=== PATIENT | female | born 1995 | race Caucasian/White ===

== ENCOUNTER 2018-01-24 02:24 | Observation (INO) | payer OTHER ==
[~2018-01-24] VITALS: Ht 167.6 cm; Wt 62.8 kg
[2018-01-24] VITALS (10 sets, daily range): BP systolic 63–149; BP diastolic 21–78; PULSE 68–102; RESP 16–20; TEMP 97.7–98.4; O2SAT 96–100
[2018-01-24] MEDS ORDERED: SODIUM CHLOR 0.9% 1000 ML INJ 1,000 ML IV ONE ×2 (03:15→06:00)
[2018-01-24] MEDS ORDERED: SODIUM CHLORIDE 0.9% FLUSH 10 ML FLUSH IV FLUSH PRN ×2 (03:15→09:15)
[2018-01-24] MEDS ORDERED: ONDANSETRON HCL 4 MG/2 ML VIAL IV PUSH ONE (03:15)
[2018-01-24] MEDS ORDERED: MORPHINE SULFATE 4 MG/ML INJ IV PUSH ONE (03:15)
[2018-01-24 03:29] LABS: BILIRUBIN, URINE NEG (NEG); BLOOD, URINE NEG (NEG); GLUCOSE,URINE NEG (NEG); KETONE, URINE NEG (NEG); NITRITE,URINE NEG (NEG); URINE COLOR YELLOW (YELLW/STRAW); URINE LEUKOCYTE ESTERASE NEG (NEG)
[2018-01-24] MEDS ORDERED: metroNIDAZOLE 500 MG INJ 100 ML IV ONE (03:30)
[2018-01-24] MEDS ORDERED: cefTRIAXone INJ 1,000 MG in SODIUM CHLORIDE 0.9% INJ 100 ML IV ONE (03:30)
[2018-01-24 03:46] LABS: AUTOMATED NEUTROPHIL # 4.5 TH/MM3 (1.8-7.7); BASOPHIL # 0.2 TH/MM3 (0-0.2); BASOPHIL % 2.7 % (0.0-2.0); EOSINOPHIL % 0.5 % (0.0-4.0); HEMATOCRIT 39.9 % (35.0-46.0); HEMOGLOBIN 13.6 GM/DL (11.6-15.3); LYMPH % 37.3 % (9.0-44.0); MEAN CELL VOLUME 86.9 FL (80.0-100.0); MEAN CORPUSCULAR HEMOGLOBIN 29.5 PG (27.0-34.0); MEAN CORPUSCULAR HGB CONC 33.9 % (32.0-36.0); MEAN PLATELET VOLUME 8.1 FL (7.0-11.0); MONO % 5.3 % (0.0-8.0); MONOCYTE # 0.4 TH/MM3 (0-0.9); NEUT % 54.2 % (16.0-70.0); PLATELET COUNT 315 TH/MM3 (150-450); RED BLOOD COUNT 4.59 MIL/MM3 (4.00-5.30); RED CELL DISTRIBUTION WIDTH 11.6 % (11.6-17.2); WHITE BLOOD COUNT 8.1 TH/MM3 (4.0-11.0)
[2018-01-24 03:48] LABS: CHLORIDE 110 MEQ/L (98-107); SODIUM (NA) 143 MEQ/L (136-145)
[2018-01-24 03:51] LABS: CALCIUM 8.9 MG/DL (8.5-10.1)
[2018-01-24 03:52] LABS: ALBUMIN 4.9 GM/DL (3.4-5.0); BICARBONATE 25.4 MEQ/L (21.0-32.0); BLOOD UREA NITROGEN 9 MG/DL (7-18); GLUCOSE,RANDOM 116 MG/DL (74-106)
[2018-01-24 03:55] LABS: ALT (GPT) 21 U/L (10-53); AST (GOT) 14 U/L (15-37); CREATININE 0.96 MG/DL (0.50-1.00); GLOMERULAR FILTRATION RATE 71 ML/MIN (>89)
[2018-01-24 03:56] LABS: BACTERIA, URINE FEW /hpf; SQUAMOUS EPITHELIAL CELL URINE > 8 /hpf (0-5); TOTAL BILIRUBIN ADULT 0.2 MG/DL (0.2-1.0); TOTAL PROTEIN 8.7 GM/DL (6.4-8.2); WBC, URINE 0-2 /hpf (0-5)
[2018-01-24 03:58] LABS: ALKALINE PHOSPHATASE 75 U/L (45-117)
--- NOTE | 2018-01-24 04:37 | PD ---
HPI Chief Complaint: GI Complaint Time Seen by Provider: 03:08 Travel History International Travel<30 days: No Contact w/Intl Traveler<30days: No Traveled to known affect area: No History of Present Illness HPI 22-year-old female presents to the emergency department by private transportation for complaint of low abdominal pain and primarily right lower quadrant. No associated fever chills nausea vomiting anorexia dysuria frequency urgency flank pain or hematuria. Patient has noted vaginal discharge. Patient is sexually active. Patient denies contraceptive use. Patient states that she has regular menses her last period was in the middle of last month. Patient has not had menses at this time. Patient states her pain is not typical of her menstrual pain. Patient is 0 para 0. Patient has history of ovarian cysts. No vaginal bleeding. Patient no longer takes control pills for management of menstrual cycle or ovarian cyst. Patient denies history of endometriosis. Patient denies injury or trauma. The patient rates her pain as moderate to severe. Patient took Tylenol prior to arrival to the emergency department. [facility] Past Medical History Narrative Medical Ovarian cyst, repair of aortic coarctation; occasional alcohol use; nursing notes reviewed Diminished Hearing: No Tetanus Vaccination: > 5 Years Influenza Vaccination: No ?: Not LMP: 12/20/17 Past Surgical History Cardiac Surgery: Yes (coarchation of aorta ) Social History Alcohol Use: Yes (social) Tobacco Use: No Substance Use: No Allergies-Medications (Allergen,Severity, Reaction): Coded Allergies: No Known Allergies (Unverified , 01/24/18) Narrative Medication Tylenol Review of Systems Except as stated in HPI: all other systems reviewed are Neg Physical Exam Narrative GENERAL: Well-developed well-nourished female in obvious discomfort but no respiratory distress SKIN: Warm and dry. HEAD: Normocephalic. EYES: No scleral icterus. No injection or drainage. NECK: Supple, trachea midline. No JVD or lymphadenopathy. CARDIOVASCULAR: Regular rate and rhythm without murmurs, gallops, or rubs. RESPIRATORY: Breath sounds equal bilaterally. No accessory muscle use. GASTROINTESTINAL: Abdomen soft, bilateral lower quadrant and suprapubic tenderness right greater than left without guarding or rebound, nondistended. Pelvic exam: Normal external exam no redness induration or lesion; speculum exam white discharge no blood no clots no tissue loss is closed; bimanual exam right greater than left adnexal tenderness to palpation without palpable adnexal mass and no uterine enlargement positive cervical motion tenderness. MUSCULOSKELETAL: No cyanosis, or edema. BACK: Nontender without obvious deformity. No CVA tenderness. Data Data Last Documented VS Vital Signs Date Time Temp Pulse Resp B/P (MAP) Pulse Ox O2 Delivery O2 Flow Rate FiO2 01/24/18 05:54 93 16 103/47 (65) 107 16 94/52 (66) 110 18 63/21 (35) 01/24/18 05:43 100 Room Air 01/24/18 02:59 97.7 Orders Orders Beta Hcg (Quant/Titer) (01/24/18 03:08) Complete Blood Count With Diff (01/24/18 03:08) Comprehensive Metabolic Panel (01/24/18 03:08) Lipase (01/24/18 03:08) Urinalysis - C+S If Indicated (01/24/18 03:08) Iv Access Insert/Monitor (01/24/18 03:08) Ecg Monitoring (01/24/18 03:08) Oximetry (01/24/18 03:08) Sodium Chloride 0.9% Flush (Ns Flush) (01/24/18 03:15) Gc And Chlamydia Pcr (01/24/18 03:08) Wet Prep Profile (01/24/18 03:08) Sodium Chlor 0.9% 1000 Ml Inj (Ns 1000 M (01/24/18 03:15) Ondansetron Inj (Zofran Inj) (01/24/18 03:15) Morphine Inj (Morphine Inj) (01/24/18 03:15) Metronidazole 500 Mg Inj (Flagyl 500 Mg (01/24/18 03:30) Ceftriaxone Inj (Rocephin Inj) (01/24/18 03:30) Ct Abd/Pel W Iv Contrast(Rout) (01/24/18 ) Iohexol 350 Inj (Omnipaque 350 Inj) (01/24/18 04:44) Orthostatic Vital Signs (01/24/18 05:39) Type And Screen (01/24/18 05:54) Sodium Chlor 0.9% 1000 Ml Inj (Ns 1000 M (01/24/18 06:00) Hemoglobin (Hgb) (01/24/18 05:54) Labs Laboratory Tests Test 01/24/18 03:13 01/24/18 06:05 White Blood Count 8.1 TH/MM3 Red Blood Count 4.59 MIL/MM3 Hemoglobin 13.6 GM/DL 11.8 GM/DL Hematocrit 39.9 % Mean Corpuscular Volume 86.9 FL Mean Corpuscular Hemoglobin 29.5 PG Mean Corpuscular Hemoglobin Concent 33.9 % Red Cell Distribution Width 11.6 % Platelet Count 315 TH/MM3 Mean Platelet Volume 8.1 FL Neutrophils (%) (Auto) 54.2 % Lymphocytes (%) (Auto) 37.3 % Monocytes (%) (Auto) 5.3 % Eosinophils (%) (Auto) 0.5 % Basophils (%) (Auto) 2.7 % Neutrophils # (Auto) 4.5 TH/MM3 Lymphocytes # (Auto) 3.0 TH/MM3 Monocytes # (Auto) 0.4 TH/MM3 Eosinophils # (Auto) 0.0 TH/MM3 Basophils # (Auto) 0.2 TH/MM3 CBC Comment DIFF FINAL Differential Comment Urine Color YELLOW Urine Turbidity CLEAR Urine pH 5.0 Urine Specific [place] 1.015 Urine Protein NEG mg/dL Urine Glucose (UA) NEG mg/dL Urine Ketones NEG mg/dL Urine Occult Blood NEG Urine Nitrite NEG Urine Bilirubin NEG Urine Urobilinogen 0.2 MG/DL Urine Leukocyte Esterase NEG Urine WBC 0-2 /hpf Urine Squamous Epithelial Cells > 8 /hpf Urine Bacteria FEW /hpf Microscopic Urinalysis Comment CULT NOT INDICATED Clue Cells (Wet Prep) NONE SEEN Vaginal Trichomonas (Wet Prep) NONE SEEN Vaginal Yeast (Wet Prep) NONE SEEN Blood Urea Nitrogen 9 MG/DL Creatinine 0.96 MG/DL Random Glucose 116 MG/DL Total Protein 8.7 GM/DL Albumin 4.9 GM/DL Calcium Level 8.9 MG/DL Alkaline Phosphatase 75 U/L Aspartate Amino Transf (AST/SGOT) 14 U/L Alanine Aminotransferase (ALT/SGPT) 21 U/L Total Bilirubin 0.2 MG/DL Sodium Level 143 MEQ/L Potassium Level 3.5 MEQ/L Chloride Level 110 MEQ/L Carbon Dioxide Level 25.4 MEQ/L Anion Gap 8 MEQ/L Estimat Glomerular Filtration Rate 71 ML/MIN Lipase 125 U/L Human Chorionic Gonadotropin, Quant LESS THAN 1 MIU/ML MDM Medical Decision Making Medical Screen Exam Complete: Yes Emergency Medical Condition: Yes Medical Record Reviewed: Yes Interpretation(s) CBC & BMP Diagram 01/24/18 03:13 Total Protein 8.7 H, Albumin 4.9, Calcium Level 8.9, Alkaline Phosphatase 75, Aspartate Amino Transf (AST/SGOT) 14 L, Alanine Aminotransferase (ALT/SGPT) 21, Total Bilirubin 0.2 Vital Signs Date Time Temp Pulse Resp B/P (MAP) Pulse Ox O2 Delivery O2 Flow Rate FiO2 01/24/18 02:59 97.7 98 18 140/71 (94) 98 Quantitative hCG: Less than 1, negative CT abd/pel: FINDINGS: There is some increased attenuation fluid and left lower quadrant and pelvis close to a 2.4 cm left ovarian cyst. There is an additional 2.1 cm left ovarian cyst. Lung bases are clear. No acute findings in the liver, spleen, adrenals, left kidney or pancreas. There is a nonobstructing 3 mm calculus upper pole right kidney with small right renal cyst. Stomach is distended. No adenopathy. No bowel obstruction. CONCLUSION: 1. 2.4 and 2.1 cm left ovarian cysts with some high density fluid in the left lower quadrant and pelvis, possibly from a ruptured ovarian hemorrhagic cyst. Ameya Martini MD on January 24, 2018 at 5:07 Board Certified Radiologist. This report was verified electronically. @ 6:19 repeat HGB: 11.8 wet prep:negative UA: wnl Differential Diagnosis Abdominal pain, PID, ectopic , ruptured ovarian cyst, ovarian torsion, UTI, vasovagal near syncope; unlikely appendicitis Narrative Course IV access obtained specimens collected and sent for resulting Patient administered morphine 2 mg IV with pain relief Lab values grossly within normal range wet prep is negative CT abdomen and pelvis ordered Imaging study consistent with bilateral ovarian cyst 2.1 cm and 2.4 cm however free fluid is noted in the pelvis consistent with probable hemorrhage; orthostatic measurements performed and patient is symptomatic with near syncope supine blood pressure 103/47 with a heart rate of 93 upon standing blood pressure is 63/21 with a heart rate of 110 in view of patient was symptomatic orthostatic hypotension with free fluid in the pelvis case discussed with on- call OB ED physician, Dr Lorenzana, with recommendation to speak to on-call GENERAL MANAGER, Dr Salazar, recommendation to transfer from [facility] emergency department to [facility] emergency department case was discussed with Dr. Mahmood as accepting [facility] ED MD. At 6:40 AM paramedics at bedside transport patient for evaluation of ruptured hemorrhagic cyst with free fluid in pelvis by CT abdomen and pelvis patient with repeat hemoglobin of 11.8 from 13.6. Patient to be evaluated for possible procedural intervention has received 1 L of normal saline and is ready receiving additional bolus of normal saline suspect possibly marked drop in blood pressure may reflect a component of vasovagal near syncope although heart rate did not decrease with drop in blood pressure. Patient is stable for transport. Physician Communication Physician Communication discussed with OB ED Dr Lorenzana --call placed to GENERAL MANAGER --Dr Salazar rec ED-ED for eval ; Dr Lorenzana aware Diagnosis Primary Impression: Hemorrhagic ovarian cyst Linda Osorio MD January 24, 2018 04:37
[2018-01-24] MEDS ORDERED: IOHEXOL 350 MG/ML 10 ML VIAL (for RAD DIAG) IVCONTRAST ONE (04:44)
--- NOTE | 2018-01-24 05:14 | RADRPT ---
EXAM DATE/TIME: 01/24/2018 04:34 [place] COMPARISON: No previous studies available for comparison. INDICATIONS : Lower abdominal pain. IV CONTRAST: 85 cc Omnipaque 350 (iohexol) IV ORAL CONTRAST: No oral contrast ingested. RADIATION DOSE: 5.96 CTDIvol (mGy) MEDICAL HISTORY : Cardiovascular disease. SURGICAL HISTORY : Cardiac surgery. ENCOUNTER: Initial ACUITY: 1 day PAIN SCALE: 7/10 LOCATION: Bilateral lower quadrant TECHNIQUE: Volumetric scanning of the abdomen and pelvis was performed. Using automated exposure control and ad justment of the mA and/or kV according to patient size, radiation dose was kept as low as reasonably achievable to obtain optimal diagnostic quality images. DICOM format image data is available electro nically for review and comparison. FINDINGS: There is some increased attenuation fluid and left lower quadrant and pelvis close to a 2.4 cm left o varian cyst. There is an additional 2.1 cm left ovarian cyst. Lung bases are clear. No acute findings in the liver, spleen, adrenals, left kidney or pancreas. Ther e is a nonobstructing 3 mm calculus upper pole right kidney with small right renal cyst. Stomach is d istended. No adenopathy. No bowel obstruction. CONCLUSION: 1. 2.4 and 2.1 cm left ovarian cysts with some high density fluid in the left lower quadrant and pelv is, possibly from a ruptured ovarian hemorrhagic cyst. Ameya Martini MD on January 24, 2018 at 5:07 Board Certified Radiologist. This report was verified electronically.
--- NOTE | 2018-01-24 06:16 | HHI.PR ---
CLINICAL DOCUMENTATION IMPROVEMENT SPECIALIST Note Note Received call from warp knit operator and spoke to Dr. Osorio about this patient, was informed about her presenting sympntoms of BL lower abd pain and CT findings of 2cm ovarian cysts, some high density fluid in the pelvis that could be blood from ruptured ovarian cyst, a starting Hb of 13.6 a 3 hour repeat that is pending, neg UPT, and + orthostatics, clinically well appearing while laying supine but symptomatic when standings. I believed that It is rare to have a ruptured ovarian cyst cause significant anemia, i asked the patient be transferred to [facility] ED and informed Dr Lorenzana of the [facility] CLINICAL DOCUMENTATION IMPROVEMENT SPECIALIST hospitalist service of her situation, he agreed to evaluate her upon arrival and if felt to be a surgical candidate then will call me back. After the above phone calls i was able to further review her chart and repeat Hb returned at 11.8 after 1 L of IV fluid, this further confirms my suspicion that she the patient may have had a ruptured ovarian cyst that is causing her pain but is not anemic, however I cannot explain the positive orthostatics but pain control and repeat the vitals and possible trending her Hb, ordered a pelvic US to better characterize and quantify the pelvic flud may be appropriate. Aamir Salazar MD January 24, 2018 06:16
--- NOTE | 2018-01-24 08:36 | PD ---
Data Data Last Documented VS Vital Signs Date Time Temp Pulse Resp B/P (MAP) Pulse Ox O2 Delivery O2 Flow Rate FiO2 01/24/18 07:26 98.4 91 17 135/75 (95) 99 Room Air Orders Orders Beta Hcg (Quant/Titer) (01/24/18 03:08) Complete Blood Count With Diff (01/24/18 03:08) Comprehensive Metabolic Panel (01/24/18 03:08) Lipase (01/24/18 03:08) Urinalysis - C+S If Indicated (01/24/18 03:08) Iv Access Insert/Monitor (01/24/18 03:08) Ecg Monitoring (01/24/18 03:08) Oximetry (01/24/18 03:08) Sodium Chloride 0.9% Flush (Ns Flush) (01/24/18 03:15) Gc And Chlamydia Pcr (01/24/18 03:08) Wet Prep Profile (01/24/18 03:08) Sodium Chlor 0.9% 1000 Ml Inj (Ns 1000 M (01/24/18 03:15) Ondansetron Inj (Zofran Inj) (01/24/18 03:15) Morphine Inj (Morphine Inj) (01/24/18 03:15) Metronidazole 500 Mg Inj (Flagyl 500 Mg (01/24/18 03:30) Ceftriaxone Inj (Rocephin Inj) (01/24/18 03:30) Ct Abd/Pel W Iv Contrast(Rout) (01/24/18 ) Iohexol 350 Inj (Omnipaque 350 Inj) (01/24/18 04:44) Orthostatic Vital Signs (01/24/18 05:39) Type And Screen (01/24/18 05:54) Sodium Chlor 0.9% 1000 Ml Inj (Ns 1000 M (01/24/18 06:00) Hemoglobin (Hgb) (01/24/18 05:54) Consult Gynecology (01/24/18 ) Admit Order (Ed Use Only) (01/24/18 ) Labs Laboratory Tests Test 01/24/18 03:13 01/24/18 06:05 White Blood Count 8.1 TH/MM3 Red Blood Count 4.59 MIL/MM3 Hemoglobin 13.6 GM/DL 11.8 GM/DL Hematocrit 39.9 % Mean Corpuscular Volume 86.9 FL Mean Corpuscular Hemoglobin 29.5 PG Mean Corpuscular Hemoglobin Concent 33.9 % Red Cell Distribution Width 11.6 % Platelet Count 315 TH/MM3 Mean Platelet Volume 8.1 FL Neutrophils (%) (Auto) 54.2 % Lymphocytes (%) (Auto) 37.3 % Monocytes (%) (Auto) 5.3 % Eosinophils (%) (Auto) 0.5 % Basophils (%) (Auto) 2.7 % Neutrophils # (Auto) 4.5 TH/MM3 Lymphocytes # (Auto) 3.0 TH/MM3 Monocytes # (Auto) 0.4 TH/MM3 Eosinophils # (Auto) 0.0 TH/MM3 Basophils # (Auto) 0.2 TH/MM3 CBC Comment DIFF FINAL Differential Comment Urine Color YELLOW Urine Turbidity CLEAR Urine pH 5.0 Urine Specific [place] 1.015 Urine Protein NEG mg/dL Urine Glucose (UA) NEG mg/dL Urine Ketones NEG mg/dL Urine Occult Blood NEG Urine Nitrite NEG Urine Bilirubin NEG Urine Urobilinogen 0.2 MG/DL Urine Leukocyte Esterase NEG Urine WBC 0-2 /hpf Urine Squamous Epithelial Cells > 8 /hpf Urine Bacteria FEW /hpf Microscopic Urinalysis Comment CULT NOT INDICATED Clue Cells (Wet Prep) NONE SEEN Vaginal Trichomonas (Wet Prep) NONE SEEN Vaginal Yeast (Wet Prep) NONE SEEN Blood Urea Nitrogen 9 MG/DL Creatinine 0.96 MG/DL Random Glucose 116 MG/DL Total Protein 8.7 GM/DL Albumin 4.9 GM/DL Calcium Level 8.9 MG/DL Alkaline Phosphatase 75 U/L Aspartate Amino Transf (AST/SGOT) 14 U/L Alanine Aminotransferase (ALT/SGPT) 21 U/L Total Bilirubin 0.2 MG/DL Sodium Level 143 MEQ/L Potassium Level 3.5 MEQ/L Chloride Level 110 MEQ/L Carbon Dioxide Level 25.4 MEQ/L Anion Gap 8 MEQ/L Estimat Glomerular Filtration Rate 71 ML/MIN Lipase 125 U/L Human Chorionic Gonadotropin, Quant LESS THAN 1 MIU/ML MDM Supervised Visit with FRANK: No Narrative Course Patient CARE was assume from Dr. Linda Osorio after transfer from [place] to [facility], this is a patient with a ruptured hemorrhagic ovarian cyst with some hemoperitoneum, she had significant orthostatic hypotension after fluid resuscitation her hemoglobin had dropped nearly 2 g. She was sent over for [facility] [employer]ER consultation, she has been seen by Dr. Lorenzana would like to place her in observation status to trend her hemoglobins but at least for the moment will be managed nonoperatively. However Dr. Lorenzana did say that the patient may need laparoscopy if her hemoglobin continues to drop. He is also ordered a pelvic ultrasound. On my assessment the patient is minimally tender suprapubically but certainly is not rigid or an acute abdomen, there is no rebound or percussive tenderness. Her blood pressure is in the high 130 systolic and she is showing any signs of shock. Diagnosis Primary Impression: Hemorrhagic ovarian cyst Admitting Information Admitting Physician Requests: Observation Condition: Stable Florentin Isidro MD January 24, 2018 08:36
--- NOTE | 2018-01-24 09:12 | HHI.HP ---
History & Physical H&P Patient Name: Raimundo Mott Unit Number: [id number] Date of : 1995 Patient Status: Admitted Inpatient (obs) Attending Doctor: Aamir Salazar MD HPI HPI Chief Complaint: GI Complaint Time Seen by Provider: 03:08 Travel History International Travel<30 days: No Contact w/Intl Traveler<30days: No Traveled to known affect area: No History of Present Illness HPI 22-year-old female G0 presents to the emergency department by private transportation for complaint of low abdominal pain and primarily right lower quadrant. LMP-2 wks ago [are regular],. No associated fever chills nausea vomiting anorexia dysuria frequency urgency flank pain or hematuria. Patient has noted vaginal discharge. Patient is sexually active. Patient denies contraceptive use. Patient states that she has regular menses her last period was in the middle of last month. Patient has not had menses at this time. Patient states her pain is not typical of her menstrual pain. Patient is 0 para 0. Patient has history of ovarian cysts. No vaginal bleeding. Patient no longer takes control pills for management of menstrual cycle or ovarian cyst. Patient denies history of endometriosis. Patient denies injury or trauma. The patient rates her pain as moderate to severe. Patient took Tylenol prior to arrival to the emergency department. History PFSH Past Medical History Narrative Medical Ovarian cyst, repair of aortic coarctation; occasional alcohol use; nursing notes reviewed Diminished Hearing: No Tetanus Vaccination: > 5 Years Influenza Vaccination: No ?: Not LMP: 12/20/17 Past Surgical History Cardiac Surgery: Yes (coarchation of aorta ) Social History Alcohol Use: Yes (social) Tobacco Use: No Substance Use: No Allergies-Medications Allergies-Medications (Allergen,Severity, Reaction): Coded Allergies: No Known Allergies (Unverified , 01/24/18) Narrative Medication Tylenol ROS Review of Systems Except as stated in HPI: all other systems reviewed are Neg Physical Exam Physical Exam Narrative GENERAL: Well-developed well-nourished female in obvious discomfort but no respiratory distress SKIN: Warm and dry. HEAD: Normocephalic. EYES: No scleral icterus. No injection or drainage. NECK: Supple, trachea midline. No JVD or lymphadenopathy. CARDIOVASCULAR: Regular rate and rhythm without murmurs, gallops, or rubs. RESPIRATORY: Breath sounds equal bilaterally. No accessory muscle use. GASTROINTESTINAL: Abdomen soft, bilateral lower quadrant and suprapubic tenderness right greater than left without guarding or rebound, nondistended. Pelvic exam: Normal external exam no redness induration or lesion; speculum exam white discharge no blood no clots no tissue loss is closed; bimanual exam right greater than left adnexal tenderness to palpation without palpable adnexal mass and no uterine enlargement positive cervical motion tenderness. MUSCULOSKELETAL: No cyanosis, or edema. BACK: Nontender without obvious deformity. No CVA tenderness. GENITOURINARY - nl ext genitalia and vagina discharge described is white and clumpy appears physiologic noninfectious 3+ CMT , uterus 2+ tender .adnexal fullness noted with 2 + tenderness no rebound no distinct mass Data Data Data Last Documented VS Vital Signs Date Time Temp Pulse Resp B/P (MAP) Pulse Ox O2 Delivery O2 Flow Rate FiO2 01/24/18 05:54 93 16 103/47 (65) 107 16 94/52 (66) 110 18 63/21 (35) 01/24/18 05:43 100 Room Air 01/24/18 02:59 97.7 Orders Orders Beta Hcg (Quant/Titer) (01/24/18 03:08) Complete Blood Count With Diff (01/24/18 03:08) Comprehensive Metabolic Panel (01/24/18 03:08) Lipase (01/24/18 03:08) Urinalysis - C+S If Indicated (01/24/18 03:08) Iv Access Insert/Monitor (01/24/18 03:08) Ecg Monitoring (01/24/18 03:08) Oximetry (01/24/18 03:08) Sodium Chloride 0.9% Flush (Ns Flush) (01/24/18 03:15) Gc And Chlamydia Pcr (01/24/18 03:08) Wet Prep Profile (01/24/18 03:08) Sodium Chlor 0.9% 1000 Ml Inj (Ns 1000 M (01/24/18 03:15) Ondansetron Inj (Zofran Inj) (01/24/18 03:15) Morphine Inj (Morphine Inj) (01/24/18 03:15) Metronidazole 500 Mg Inj (Flagyl 500 Mg (01/24/18 03:30) Ceftriaxone Inj (Rocephin Inj) (01/24/18 03:30) Ct Abd/Pel W Iv Contrast(Rout) (01/24/18 ) Iohexol 350 Inj (Omnipaque 350 Inj) (01/24/18 04:44) Orthostatic Vital Signs (01/24/18 05:39) Type And Screen (01/24/18 05:54) Sodium Chlor 0.9% 1000 Ml Inj (Ns 1000 M (01/24/18 06:00) Hemoglobin (Hgb) (01/24/18 05:54) Labs Laboratory Tests Test 01/24/18 03:13 01/24/18 06:05 White Blood Count 8.1 TH/MM3 Red Blood Count 4.59 MIL/MM3 Hemoglobin 13.6 GM/DL 11.8 GM/DL Hematocrit 39.9 % Mean Corpuscular Volume 86.9 FL Mean Corpuscular Hemoglobin 29.5 PG Mean Corpuscular Hemoglobin Concent 33.9 % Red Cell Distribution Width 11.6 % Platelet Count 315 TH/MM3 Mean Platelet Volume 8.1 FL Neutrophils (%) (Auto) 54.2 % Lymphocytes (%) (Auto) 37.3 % Monocytes (%) (Auto) 5.3 % Eosinophils (%) (Auto) 0.5 % Basophils (%) (Auto) 2.7 % Neutrophils # (Auto) 4.5 TH/MM3 Lymphocytes # (Auto) 3.0 TH/MM3 Monocytes # (Auto) 0.4 TH/MM3 Eosinophils # (Auto) 0.0 TH/MM3 Basophils # (Auto) 0.2 TH/MM3 CBC Comment DIFF FINAL Differential Comment Urine Color YELLOW Urine Turbidity CLEAR Urine pH 5.0 Urine Specific [place] 1.015 Urine Protein NEG mg/dL Urine Glucose (UA) NEG mg/dL Urine Ketones NEG mg/dL Urine Occult Blood NEG Urine Nitrite NEG Urine Bilirubin NEG Urine Urobilinogen 0.2 MG/DL Urine Leukocyte Esterase NEG Urine WBC 0-2 /hpf Urine Squamous Epithelial Cells > 8 /hpf Urine Bacteria FEW /hpf Microscopic Urinalysis Comment CULT NOT INDICATED Clue Cells (Wet Prep) NONE SEEN Vaginal Trichomonas (Wet Prep) NONE SEEN Vaginal Yeast (Wet Prep) NONE SEEN Blood Urea Nitrogen 9 MG/DL Creatinine 0.96 MG/DL Random Glucose 116 MG/DL Total Protein 8.7 GM/DL Albumin 4.9 GM/DL Calcium Level 8.9 MG/DL Alkaline Phosphatase 75 U/L Aspartate Amino Transf (AST/SGOT) 14 U/L Alanine Aminotransferase (ALT/SGPT) 21 U/L Total Bilirubin 0.2 MG/DL Sodium Level 143 MEQ/L Potassium Level 3.5 MEQ/L Chloride Level 110 MEQ/L Carbon Dioxide Level 25.4 MEQ/L Anion Gap 8 MEQ/L Estimat Glomerular Filtration Rate 71 ML/MIN Lipase 125 U/L Human Chorionic Gonadotropin, Quant LESS THAN 1 MIU/ML Exceptions Exceptions [facility] Medical Decision Making Medical Screen Exam Complete: Yes Emergency Medical Condition: Yes Medical Record Reviewed: Yes Interpretation(s) CBC & BMP Diagram 01/24/18 03:13 Total Protein 8.7 H, Albumin 4.9, Calcium Level 8.9, Alkaline Phosphatase 75, Aspartate Amino Transf (AST/SGOT) 14 L, Alanine Aminotransferase (ALT/SGPT) 21, Total Bilirubin 0.2 Vital Signs Date Time Temp Pulse Resp B/P (MAP) Pulse Ox O2 Delivery O2 Flow Rate FiO2 01/24/18 02:59 97.7 98 18 140/71 (94) 98 Quantitative hCG: Less than 1, negative CT abd/pel: FINDINGS: There is some increased attenuation fluid and left lower quadrant and pelvis close to a 2.4 cm left ovarian cyst. There is an additional 2.1 cm left ovarian cyst. Lung bases are clear. No acute findings in the liver, spleen, adrenals, left kidney or pancreas. There is a nonobstructing 3 mm calculus upper pole right kidney with small right renal cyst. Stomach is distended. No adenopathy. No bowel obstruction. CONCLUSION: 1. 2.4 and 2.1 cm left ovarian cysts with some high density fluid in the left lower quadrant and pelvis, possibly from a ruptured ovarian hemorrhagic cyst. hemoperitoneum likely maybe self limiting and if so would not need surgery , if Hgb decreases any more or if pain worsens peritoneal signs increase then recommend scope and indicated procedures Ameya Martini MD on January 24, 2018 at 5:07 Board Certified Radiologist. This report was verified electronically. @ 6:19 repeat HGB: 11.8 wet prep:negative UA: wnl Differential Diagnosis Abdominal pain, PID, ectopic , ruptured ovarian cyst, ovarian torsion, UTI, vasovagal near syncope; unlikely appendicitis Narrative Course IV access obtained specimens collected and sent for resulting Patient administered morphine 2 mg IV with pain relief Lab values grossly within normal range wet prep is negative CT abdomen and pelvis ordered Imaging study consistent with bilateral ovarian cyst 2.1 cm and 2.4 cm however free fluid is noted in the pelvis consistent with probable hemorrhage; orthostatic measurements performed and patient is symptomatic with near syncope supine blood pressure 103/47 with a heart rate of 93 upon standing blood pressure is 63/21 with a heart rate of 110 in view of patient was symptomatic orthostatic hypotension with free fluid in the pelvis case discussed with on- call OB ED physician, Dr Lorenzana, with recommendation to speak to on-call BUSINESS SERVICES MANAGER, Dr Salazar, recommendation to transfer from [facility] emergency department to [facility] emergency department case was discussed with Dr. Mahmood as accepting [facility] ED MD. At 6:40 AM paramedics at bedside transport patient for evaluation of ruptured hemorrhagic cyst with free fluid in pelvis by CT abdomen and pelvis patient with repeat hemoglobin of 11.8 from 13.6. Patient to be evaluated for possible procedural intervention has received 1 L of normal saline and is ready receiving additional bolus of normal saline suspect possibly marked drop in blood pressure may reflect a component of vasovagal near syncope although heart rate did not decrease with drop in blood pressure. Patient is stable for transport. Physician Communication Physician Communication --call placed to BUSINESS SERVICES MANAGER --Dr Salazar rec ED-ED for eval; Diagnosis Primary Impression: Hemorrhagic ovarian cyst January 24, 2018 [id number] Perez Lorenzana II, MD January 24, 2018 09:12
[2018-01-24] MEDS ORDERED: KETOROLAC TROMETHAMINE 30 MG/ML (IVP) VIAL IV PUSH PRN (09:15)
[2018-01-24] MEDS ORDERED: MORPHINE SULFATE 4 MG/ML INJ IV PUSH PRN (09:15)
--- NOTE | 2018-01-24 10:42 | RADRPT ---
EXAM DATE/TIME: 01/24/2018 09:32 [place] COMPARISON: No previous studies available for comparison. INDICATIONS : Pelvic pain. MEDICAL HISTORY : Pelvic pain. SURGICAL HISTORY : Coarctation of aorta. ENCOUNTER: Initial ACUITY: 3 days PAIN SCORE: 8/10 LOCATION: Bilateral pelvis MEASUREMENTS: UTERUS: 7.2 x 4.7 x 3.7 cm ENDOMETRIAL STRIPE: 8 mm RIGHT OVARY: 3.7 x 3.2 x 1.9 cm LEFT OVARY: 6.2 x 3.8 x 2.5 cm FINDINGS: UTERUS: The myometrium has homogeneous echotexture without mass. Homogeneous echotexture to the endometrium. No endometrial fluid. RIGHT OVARY: Ovary contains no mass or significant cystic lesion. Multiple follicular cysts. LEFT OVARY: There is a dominant cyst and the left ovary measuring 2.5 x 2.5 cm containing scattered internal spec ular echoes. There are also multiple small follicular cysts. There is intact flow to the ovary by c olor Doppler. MISCELLANEOUS: Moderate amount of free fluid in the cul-de-sac and bilateral adnexa CONCLUSION: 1. Moderate amount of free fluid in the cul-de-sac and bilateral adnexa. 2. 2.5 cm dominant cyst in the left ovary and multiple bilateral follicular cysts. Evan Muñiz MD on January 24, 2018 at 10:31 Board Certified Radiologist. This report was verified electronically.
[2018-01-24 15:38] LABS: BASOPHIL % 0.3 % (0.0-2.0); EOSINOPHIL % 0.2 % (0.0-4.0); HEMATOCRIT 34.9 % (35.0-46.0); HEMOGLOBIN 11.8 GM/DL (11.6-15.3); LYMPH % 13.4 % (9.0-44.0); LYMPHOCYTE # 1.5 TH/MM3 (1.0-4.8); MEAN CELL VOLUME 88.5 FL (80.0-100.0); MEAN CORPUSCULAR HEMOGLOBIN 29.8 PG (27.0-34.0); MEAN CORPUSCULAR HGB CONC 33.7 % (32.0-36.0); MEAN PLATELET VOLUME 7.9 FL (7.0-11.0); MONO % 6.9 % (0.0-8.0); MONOCYTE # 0.8 TH/MM3 (0-0.9); NEUT % 79.2 % (16.0-70.0); PLATELET COUNT 267 TH/MM3 (150-450); RED BLOOD COUNT 3.95 MIL/MM3 (4.00-5.30); RED CELL DISTRIBUTION WIDTH 12.7 % (11.6-17.2); WHITE BLOOD COUNT 11.3 TH/MM3 (4.0-11.0)
[2018-01-24] MEDS: SODIUM CHLORIDE 0.9% FLUSH 10 ML FLUSH IV FLUSH SCH (22:19)
[2018-01-25 03:49] VITALS: BP 118/66; PULSE 52; RESP 18; TEMP 97.8; O2SAT 98
[2018-01-25 07:38] VITALS: BP 107/57; PULSE 62; RESP 17; TEMP 98; O2SAT 99
[2018-01-25] MEDS: SODIUM CHLORIDE 0.9% FLUSH 10 ML FLUSH IV FLUSH SCH (08:47)
[2018-01-25 09:17] LABS: HEMATOCRIT 35.8 % (35.0-46.0); HEMOGLOBIN 12.2 GM/DL (11.6-15.3); MEAN CELL VOLUME 89.3 FL (80.0-100.0); MEAN CORPUSCULAR HEMOGLOBIN 30.4 PG (27.0-34.0); MEAN CORPUSCULAR HGB CONC 34.1 % (32.0-36.0); MEAN PLATELET VOLUME 8.1 FL (7.0-11.0); PLATELET COUNT 234 TH/MM3 (150-450); RED BLOOD COUNT 4.01 MIL/MM3 (4.00-5.30); RED CELL DISTRIBUTION WIDTH 12.8 % (11.6-17.2); WHITE BLOOD COUNT 5.4 TH/MM3 (4.0-11.0)
--- NOTE | 2018-01-25 09:27 | HHI.PR ---
VEST TAILOR Note Note VEST TAILOR progress note Patient seen and examined this morning. Patient states she feels improved overall with improvement of her abdominal pain. She denies any sharp or worrisome abdominal pain. Denies fevers or chills, N/V, dysuria, abnormal vaginal discharge or bleeding. She denies changes in vision, dizziness, lightheadedness. GENERAL: Well-developed well-nourished female in no apparent distress, walking around in room prior to examination SKIN: Warm and dry. HEAD: Normocephalic. Atraumatic. EYES: EOMI. No scleral icterus. No injection or drainage. NECK: Supple, trachea midline. No JVD or lymphadenopathy. CARDIOVASCULAR: Regular rate and rhythm without murmurs, gallops, or rubs. RESPIRATORY: Breath sounds clear and equal bilaterally. No accessory muscle use. GASTROINTESTINAL: Abdomen soft, mild bilateral lower quadrant and suprapubic tenderness left greater than right without guarding or rebound tenderness, nondistended. MUSCULOSKELETAL: No cyanosis, or edema. BACK: Nontender without obvious deformity. No CVA tenderness. Last 72 hours Impressions Abdomen/Pelvis/Transvag US 01/24/18 0000 Signed Impressions: Service Date/Time: Wednesday, January 24, 2018 09:32 - CONCLUSION: 1. Moderate amount of free fluid in the cul-de-sac and bilateral adnexa. 2. 2.5 cm dominant cyst in the left ovary and multiple bilateral follicular cysts. Evan Muñiz MD Abdomen/Pelvis CT 01/24/18 0000 Signed Impressions: Service Date/Time: Wednesday, January 24, 2018 04:34 - CONCLUSION: 1. 2.4 and 2.1 cm left ovarian cysts with some high density fluid in the left lower quadrant and pelvis, possibly from a ruptured ovarian hemorrhagic cyst. Ameya Martini MD A/P: 22 year old female admitted following low abdominal pain primarily right lower quadrant pain and found to have a likely ruptured hemorrhagic ovarian cyst on CT. Patient remains afebrile with stable vital signs. Abdominal pain has significantly improved since admission. The patient's hemoglobin has trended from 13.6 on admission to 11.8 and remained stable at 11.8 after repeat monitoring and despite IVF hydration. Will repeat H/H this AM and if stable consider discharge home. Todd Rodriguez MD R2 January 25, 2018 09:27
[2018-01-25] MEDS ORDERED: IBUP1TAB5 PO (09:50)
--- NOTE | 2018-01-25 09:51 | HHI.DCPOC ---
Discharge Care Plan Diagnosis: (1) Hemorrhagic ovarian cyst Report Symptoms to Your Doctor -Temperature above 100.5 degrees -Redness, of incision or excessive or foul smelling drainage -Unusual pain or calf pain -Increased vaginal bleeding -Painful or difficulty urinating -Feelings of extreme sadness or anxiety after 2 weeks Goals to Promote Your Health * To prevent worsening of your condition and complications, follow up with an OB /TAPER OPERATOR provider within one week after hospital discharge. Directions to Meet Your Goals Take your medications as prescribed Follow your dietary instruction Follow activity as directed Ensure plenty of rest for recovery Drink fluids for hydration Keep your appointments as scheduled Take your immunizations and boosters as scheduled If your symptoms worsen call your PCP, if no PCP go to Urgent Care Center or Emergency Room Smoking is Dangerous to Your Health. Avoid second hand smoke Call the 24-hour crisis hotline for domestic abuse at Todd Rodriguez MD R2 January 25, 2018 09:51
== END 2018-01-25 10:51 | disposition home or self-care (01) ==
LOC: PHED 02:24 → PHEDA 08:39 → NEPHCDU 12:52
PROVIDERS: ADMIT Obstetrics & Gynecology; ATTEND Obstetrics & Gynecology
DX: N83.202 Unspecified ovarian cyst, left side (principal); N83.02 Follicular cyst of left ovary; N83.01 Follicular cyst of right ovary; N89.8 Other specified noninflammatory disorders of vagina; N28.1 Cyst of kidney, acquired; N20.0 Calculus of kidney
CPT/HCPCS: 74177; 76830; 76856; 80053; 81001; 83690; 84702; 85018; 85025; 85027; 86850; 86900; 86901; 87210; 87491; 87591; 93975; 96365; 96367; 96375; 99285; G0378; J0696; J2270; J2405; J7030; Q9967